=== PATIENT | male | born 1955 | race Caucasian/White ===

== ENCOUNTER 2016-11-19 10:00 | Inpatient (IN) | payer MEDICARE, BC ==
[~2016-11-19] VITALS: Ht 182.9 cm; Wt 140.8 kg
--- NOTE | ~2016-11-19 | OR ---
PATIENT'S NAME: ALFREDO MURRIETA [facility] AGE: 61 Y [address] ROOM: [place] [address] LOCATION: GICU ADMIT DATE: 11/19/2016 OR/Procedure Report DISCHARGE DATE: FAMILY PHYSICIAN: Denny Viera MD ATTENDING PHYSICIAN: OLAMIDE DIEHL SURGEON: Alfredo Allan MD [employer] REPRESENTATIVE: Kelly Munoz RN DATE OF PROCEDURE: 11/19/2016 PREOPERATIVE DIAGNOSES: 1. Right knee effusion. 2. Potential septic arthritis. 3. Potential periprosthetic infection, right knee. POSTOPERATIVE DIAGNOSES: 1. Right knee effusion. 2. Potential septic arthritis. 3. Potential periprosthetic infection, right knee. PROCEDURE PERFORMED: Aspiration of right knee. ANESTHESIA: Local. INDICATION FOR PROCEDURE: The patient presents with an acute right knee effusion. Knee pain and swelling commenced at 2 a.m. this morning. Aspiration is indicated to rule out infection. The patient has a history of a previous 2-stage revision for septic arthritis of this knee. The patient and his have been informed of the risk of iatrogenic infection, and informed consent for this procedure has been granted. DESCRIPTION OF PROCEDURE: With the patient positioned supine, the lateral aspect of the right knee was prepped with DuraPrep 3 separate times. Subcutaneous tissues at the lateral aspect of the suprapatellar pouch were subsequently infiltrated with 5 mL of 1% plain lidocaine using a 25-gauge needle. The skin was re-prepped with DuraPrep, and an 18-gauge needle was advanced through the anesthetized sterilized area into the lateral aspect of the suprapatellar pouch. 60 mL of purulent material was aspirated and sent for cell count, Gram stain, and culture and sensitivities. He tolerated this well, and there were no breaches in sterile technique. ALFREDO ALLAN MD PATIENT'S NAME: ALFREDO MURRIETA [facility] AGE: 61 Y [address] ROOM: [place] [address] LOCATION: GICU ADMIT DATE: 11/19/2016 OR/Procedure Report DISCHARGE DATE: FAMILY PHYSICIAN: Denny Viera MD ATTENDING PHYSICIAN: OLAMIDE DIEHL/gil /[id number] d: 11/19/16 1340 t: 11/29/16 0751, OPERATIVE SUMMARY
--- NOTE | ~2016-11-19 | OR ---
PATIENT'S NAME: [facility] AGE: 61 Y [address] ROOM: [place] [address] LOCATION: [facility] ADMIT DATE: 11/19/2016 OR/Procedure Report DISCHARGE DATE: FAMILY PHYSICIAN: Denny Viera MD ATTENDING PHYSICIAN: OLAMIDE DIEHL SURGEON: Alfredo Servin MD INST[employer]ING: ARIN Mark [employer] Todd Bernal CST/SAFETY ANALYST. DATE OF PROCEDURE: 11/19/2016 PREOPERATIVE DIAGNOSES: 1. Right knee septic arthritis. 2. Periprosthetic infection, right knee. 3. 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 POSTOPERATIVE DIAGNOSES: 1. Right knee septic arthritis. 2. Periprosthetic infection, right knee. 3. 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 PROCEDURE PERFORMED: 1. Irrigation and debridement, right knee with extensive synovectomy and exchange of tibial polyethylene insert and femoral hinge pin. 2. Placement of antibiotic impregnated beads. ANESTHESIA: General. ESTIMATED BLOOD LOSS: Less than 50 mL. DRAINS: None. SPECIMEN: None. COMPLICATIONS: None. IMPLANTS: 1. DePuy LPS 23 mm size medium tibial polyethylene insert. 2. DePuy S-ROM NOILES replacements, femoral hinge pin. COMPLICATIONS: None. INDICATION FOR PROCEDURE: Mr. Barrera awoke on the morning of this procedure at 2:00 a.m. with significant right knee pain. His knee had previously been PATIENT'S NAME: [facility] AGE: 61 Y [address] ROOM: [place] [address] LOCATION: [facility] ADMIT DATE: 11/19/2016 OR/Procedure Report DISCHARGE DATE: FAMILY PHYSICIAN: Denny Viera MD ATTENDING PHYSICIAN: OLAMIDE DIEHL functioning very well. His previous orthopedic history is significant for having undergone a 2-stage exchange right knee arthroplasty secondary to a periprosthetic infection with Staphylococcus aureus. His knee was reimplanted in April of this year and it has been functioning well with no signs or symptoms of persistent or recurrent infection, until 2:00 a.m. on the morning of this procedure. Aspiration of the patient's right knee demonstrated over 100,000 white blood cells with a preponderance of neutrophils. He is taken to the operating room urgently in an effort to salvage his procedure. Presumably, there has been hematogenous dissemination of bacteria from elsewhere in his body (given the fact that his knee asymptomatic when he went to bed on the evening prior to surgery). He has a 3 mm ulcerated lesion at his right heel and multiple cracks in the skin at the sole of both of his feet and, presumably, this could have been a route for bacterial ingress. Risks, benefits, limitations, and alternatives to this procedure have been thoroughly reviewed with the patient and his spouse. I have emphasized the potential for persistent or recurrent infection, deep venous thrombosis, pulmonary embolism, mortality, neurovascular complications, stiffness, wear, loosening, and potential need for further revision. We have discussed the option of proceeding directly with a resection arthroplasty (with an anticipated 2-stage revision and the patient's expressed reluctance to do so, "Unless absolutely necessary." Furthermore, she has expressed a desire for her to be more actively involved in this decision-making process with a more clear sensorium that he presently has, otherwise given the fact that he is demonstrating signs and symptoms of septicemia). Furthermore, it is acknowledged that removal of his revision components could further compromise his residual distal femoral and proximal tibial bone stock (potentially precluding stable reimplantation). Informed consent granted. DESCRIPTION OF PROCEDURE: The patient was positioned supine. Intravenous antibiotics had been administered prior to my consultation. The patient and his had been informed of the potential for a false negative culture. A well-padded pneumatic tourniquet was positioned around the right proximal thigh. The right lower extremity was prepped and draped with vigilant sterile technique. Examination under anesthesia demonstrated neutral alignment. There was a large effusion. There was a well-healed midline scar. There was no erythema. There was no abnormal warmth. Range of motion of the knee is 0- 120 degrees of flexion. There was no varus or valgus laxity. The right lower extremity was elevated for 3 minutes prior to inflation of the tourniquet. The knee was not exsanguinated. The knee was approached through a longitudinal midline incision. A medial parapatellar arthrotomy was performed. There were several 100 mL of purulent fluid within the joint. The patella was not resurfaced. There was a moderate amount of fibrinous exudate. There was a mild amount of proliferative PATIENT'S NAME: ALFREDO BARRERA [facility] AGE: 61 Y [address] ROOM: [facility] [place], [place] [address] LOCATION: [facility] ADMIT DATE: 11/19/2016 OR/Procedure Report DISCHARGE DATE: FAMILY PHYSICIAN: Denny Viera MD ATTENDING PHYSICIAN: OLAMIDE DIEHL synovitis. Overall, there was not a large amount of proliferative soft tissue surrounding the joint (indicating that this was most recently a recent hematogenous dissemination of infection rather than a chronic low-grade infection). Extensive synovectomy was performed. The femoral hinge pin was removed and the tibial polyethylene insert was removed. The entire joint space and prosthetic interfaces were irrigated with 3 L of sterile saline containing bacitracin, prior to irrigation with 1 L of Rashmi Bactisure, prior to irrigation with an additional 3 L of sterile saline containing bacitracin. After the irrigation, a new tibial polyethylene insert was placed and a new femoral hinge pin was deployed and confirmed to be fully seated under direct visualization. Patellar tracking was neutral. The incision was closed with multiple [id number] interrupted and simple interrupted #2 PDS sutures, followed by a running PDS Quill suture. Subcutaneous tissues were re-irrigated and reapproximated with a running 0 Quill suture. The skin was closed with surgical lynsey. The dressing consisted of a Mepilex dressing, followed by a compressive Garfield wrap, followed by a knee immobilizer. MD STEF HAWK/gil /[id number] d: 11/20/16 1013 t: 11/29/16 0757, OPERATIVE SUMMARY
--- NOTE | ~2016-11-19 | ECHO ---
Transthoracic Echocardiography Report (TTE) Demographics Patient Name ALFREDO MURRIETA Date of Study 11/22/2016 Patient Number [id number] Visit Number [id number] Date of 1955 Room Number [id number] Gender Male Number Age 61 year(s) Referring Clotilde Lovell Cover Stitch Machine Operator Lizet Urbina RDCS, RVT, Physician RDMS, ENVIRONMENTAL SAFETY SPECIALIST Physician Interpreting Carlos Adametommy Manager Material Physician Supervising Ordering [facility] Shira Chaparro MD/P Physician Nurse [employer] Solutions Architect Conclusions Summary The estimated left ventricular ejection fraction is 60-65%. Moderate concentric left ventricular hypertrophy. Diastolic assessment reveals Grade II pseudonormal diastolic function . The left ventricle is normal in size . Mildly dilated right ventricle. Normal right ventricular systolic function. The left atrium is moderately dilated by LA volume index measurement. The IVC is not visualized. The right atrium is mildly dilated. Trivial mitral regurgitation by color Doppler. Mild calcification of the mitral valve. The aortic valve is mildly sclerotic. Small echodensity noted on right coronary cusp of aortic valve likely due to degenerative changes and calcification. Consider CHIN if clinically indicated. No obvious vegetation seen. Clinical correlation is recommended. Procedure Type of Study TTE procedure:2D Echocardiogram, M-Mode, Doppler , Color Doppler. Procedure Date Date: 11/22/2016 Start: 11:28 AM Study Location: Inpatient Portable Technical Quality: Adequate visualization Additional Indications:Endocarditis Patient Status: STAT HR: 70 bpm BP: 188/77 mmHg M-Mode/2D Measurements LV Diastolic Dimension: 5.19 cm LV Systolic Dimension: 3.2 cm LV Septum Diastolic: 1.4 cm LV PW Diastolic: 1.33 cm AO Root Dimension: 3.1 cm Cardiac Output: 6.05 l/min AV Cusp Separation: 2 cm RV Diastolic Dimension: 3.88 cm LA volume: 70 ml LVOT: 2.3 cm RV Base: 84 cm LVOT VTI: 20.8 cm RV Mid: 4.2 cm LV Stroke volume: 86.38 ml TAPSE: 2.2 cm TDI-S': 13 cm/s Doppler Measurements AV Peak Velocity: 1.31 m/s MV Peak E-Wave: 1.19 m/s AV Peak Gradient: 6.86 mmHg MV Peak A-Wave: 0.87 m/s AV Mean Gradient: 3 mmHg MV E/A Ratio: 1.37 LVOT Peak Velocity: 0.82 m/s MV P1/2t: 63 msec TR Gradient:18.15 mmHg PV Peak Velocity: 1.11 m/s PV Peak Gradient: 4.93 mmHg E' Septal Velocity: 0.04 m/s A' Septal Velocity: 0.12 m/s E' Lateral Velocity: 0.07 m/s A' Lateral Velocity: 0.15 m/s Findings Left Ventricle Mild concentric left ventricular hypertrophy. Diastolic assessment reveals Grade II pseudonormal diastolic function . The left ventricle is normal in size . Right Ventricle Mild to moderately dilated right ventricle. Normal right ventricular systolic function. Left Atrium The left atrium is moderately dilated by LA volume index measurement. Right Atrium The IVC is not visualized. The right atrium is mildly dilated. Mitral Valve Trivial mitral regurgitation by color Doppler. Mild calcification of the mitral valve. Aortic Valve The aortic valve is mildly sclerotic. Small echodensity noted on right coronary cusp of aortic valve likely due to degenerative changes and calcification Tricuspid Valve Trivial tricuspid regurgitation by color Doppler. Pulmonic Valve Normal pulmonic valve structure and function. Pericardial Effusion No evidence of pericardial effusion. Miscellaneous The ascending aorta appears mildly dilated. The maximum diameter measures 3.7 cm. Pleural Effusion No evidence of pleural effusion. Contractility Score LV regional wall motion:(0-Non visualized 1-Normal 2-Hypokinesis 3-Akinesis 4-Dyskinesis 5-Aneurysm) Signature dtt: RUSTY IQBAL dtd: 11/22/16 1128 Physician Self Edit
--- NOTE | ~2016-11-19 | DS ---
PATIENT'S NAME: ALFREDO MURRIETA [facility] AGE: 61 Y [address] ROOM: [id number] [place], [place] [address] LOCATION: GICU ADMIT DATE: 11/19/2016 Discharge Summary DISCHARGE DATE: 11/23/2016 FAMILY PHYSICIAN: Denny Viera MD ATTENDING PHYSICIAN: Leona Siddiqi PRINCIPAL/DISCHARGE DIAGNOSES: 1. Right septic arthritis of the knee. 2. Staphylococcus bacteremia. 3. Sepsis secondary to knee arthritis with sepsis. 4. Acute kidney injury. 5. Type 2 diabetes. 6. Diastolic congestive heart failure. HOSPITAL COURSE: Please refer to the admission history and physical for a detailed history on initial presentation. This is a 61-year-old male with type 2 diabetes, who has had right knee revision done earlier this year, who presented with worsening pain in the right knee and was noted to have an infection in the knee. The patient was immediately seen by Orthopedics and was taken to the operating room for some I and D and cleanup of the knee. Cultures from the knee joint did grow MSSA. The patient was treated with broad-spectrum antibiotics initially, and after sensitivities were back, he has been on Ancef. The patient is to continue long-term IV antibiotic treatment with Ancef going forward, and he is going to have a close followup with regard to managing his prosthetic knee joint going forward. The patient is to closely follow up with Dr. Servin. The patient continues to spike persistent fevers and managing the source of the infection, which is the right knee that continues to be a challenge, and at this point, we are trying to do everything possible to save that knee joint. I had a long discussion with Dr. Servin, the patient and patient's about the challenge of controlling the source of infection. But at this point, we will continue aggressive treatment with long course of antibiotic treatments and closely monitor clinically. The patient today tells me that he feels fine and is ready to be discharged to swing bed where he can also be closely monitored. The patient is advised to return if he shows any signs of deterioration. The patient was also noted to have an outside laboratory report showing that he has staphylococcus bacteremia in one of two bottles. I did go ahead and get an echocardiogram to check for endocarditis, and there are no signs of vegetation. At this point, we will continue treatment with the same antibiotics that we are using for the septic joint and continue to monitor clinically. PHYSICAL EXAMINATION: GENERAL APPEARANCE: The patient is awake, alert, and oriented x3, in no acute distress. HEART: S1 and S2. Regular rate and rhythm. ABDOMEN: Soft, nontender, and nondistended. PATIENT'S NAME: ALFREDO MURRIETA [facility] AGE: 61 Y [address] ROOM: [place] [address] LOCATION: [facility] ADMIT DATE: 11/19/2016 Discharge Summary DISCHARGE DATE: 11/23/2016 FAMILY PHYSICIAN: Denny Viera MD ATTENDING PHYSICIAN: Leona Siddiqi EXTREMITIES: Without edema. NEUROLOGIC: Grossly nonfocal. DISPOSITION: To swing bed and will continue antibiotics as prescribed with Ancef for an extended period of time and will follow up with Dr. Servin and ID closely. Greater than 30 minutes were spent in discharge planning and facilitating. MD TRISTIAN EDMOND/modl /[id number] d: 11/23/16 1244 t: 12/01/161999, DISCHARGE SUMMARY
--- NOTE | ~2016-11-19 | CON ---
PATIENT'S NAME: ALFREDO BARRERA [facility] AGE: 61 Y [address] ROOM: [id number] [place], [place] [address] LOCATION: GICU ADMIT DATE: 11/19/2016 Consultation DISCHARGE DATE: FAMILY PHYSICIAN: Denny Viera MD ATTENDING PHYSICIAN: OLAMIDE DIEHL REFERRING PHYSICIAN: ALFREDO ALLAN MD HISTORY OF PRESENT ILLNESS: Mr. Barrera is a 61-year-old male, whose past orthopedic history is significant for having undergone a 2-stage revision right total knee arthroplasty for a periprosthetic infection last year. We reimplanted his right total knee arthroplasty on May 06, 2016, and he has been doing very well (subjectively and objectively) with no signs of recurrent difficulties with his knee until 2:00 a.m. this morning. The patient's states that he was "doing great at 8:00 p.m. last night when he went to bed." The patient awoke at approximately 2:00 a.m. this morning to go to the bathroom. He noted significant right knee pain and swelling. He did not wake his up at that time. His noted that he was confused and lethargic this morning. This made her concerned that he might have suffered a recurrent cerebrovascular accident. His past medical history is significant for having sustained a cerebrovascular accident in July 2013. He has required a cane for balance since then. The patient's took him to the emergency room this morning in his home town. The caregiver who evaluated him there was concerned regarding septicemia due to the fact that he was febrile and tachycardic. The right knee was the only site of suspected infection. Arrangements were made to transfer him here promptly. Intravenous antibiotics were reportedly administered prior to contacting us. The patient has been hemodynamically stable. The patient states, "I could do anything I wanted with it until this morning" (referring to his right knee). The patient's states that her has been more active than usual over the past few days due to the fact that he has been caring for her after she has returned home from recent hospitalization. ACTIVE MEDICAL PROBLEMS: Diabetes mellitus, history of renal insufficiency (acute renal insufficiency associated with his previous periprosthetic infection and antibiotic treatment thereof). ACTIVE MEDICAL PROBLEMS: Hypertension, history of renal insufficiency, diabetes mellitus, osteoarthritis. PRESENT MEDICATIONS: 1. Pravastatin. 2. Remeron. 3. Metformin. PATIENT'S NAME: ALFREDO BARRERA [facility] AGE: 61 Y [address] ROOM: [id number] [place], [place] [address] LOCATION: GICU ADMIT DATE: 11/19/2016 Consultation DISCHARGE DATE: FAMILY PHYSICIAN: Denny Viera MD ATTENDING PHYSICIAN: OLAMIDE DIEHL 4. Januvia. 5. Gabapentin. 6. Plavix. 7. Amlodipine. PAST SURGICAL HISTORY: Appendectomy, unspecified lumbar spine surgery, unspecified colon surgery, right total knee arthroplasty, removal of right total knee arthroplasty, reimplantation of right total knee arthroplasty. PHYSICAL EXAMINATION: GENERAL: The patient is alert, responsive, somewhat somnolent and lethargic, oriented x3, but he recalls details related to his previous knee treatment, and the circumstances of the last 24 hours, no acute distress. EXTREMITIES: Right knee demonstrates a large effusion. There is a well-healed longitudinal midline scar at the right knee. There is moderate generalized tenderness at the right knee. There is mild increased warmth at the right knee. There is no flexion contracture at the right knee. There is neutral alignment of the right knee. Flexion of the right knee is from full extension to 120 degrees of flexion. He is able to actively dorsiflex and plantar flex the right ankle with 5/5 motor strength. 2+ dorsalis pedis pulse on the right. RADIOGRAPHS: I reviewed outside radiographs from this morning. These demonstrate a well- fixed, well-aligned, rotating hinge S-ROM NOYLES DePuy implant with cemented tibial and femoral stems and cemented tibial and femoral metaphyseal sleeves. There are no radiolucencies. The patella is not resurfaced. The residual te-moak patella is thin. Patella height is normal. IMPRESSION: 1. Septicemia with periprosthetic right knee infection. 2. Diabetes mellitus. 3. History of renal insufficiency. 4. Hypertension. 5. History of previous periprosthetic infection. Based upon the history that the patient provides (acute symptoms starting at 2:00 a.m. this morning), this may very well be a hematogenous dissemination of infection in the knee. It would be highly unusual for there to have been a chronic persistent (and/or recurrent) periprosthetic infection in the absence of any symptoms until this morning at 2:00 p.m. RECOMMENDATIONS: I recommended an aspiration. This was highly concerning for recurrent septic arthritis. Please refer to the separately dictated procedure note. PATIENT'S NAME: ALFREDO BARRERA [facility] AGE: 61 Y [address] ROOM: [place] [address] LOCATION: [facility] ADMIT DATE: 11/19/2016 Consultation DISCHARGE DATE: FAMILY PHYSICIAN: Denny Viera MD ATTENDING PHYSICIAN: OLAMIDE DIEHL I have recommended prompt irrigation and debridement. I have informed the patient and his that the infection poses a risk to his life presently and requires urgent irrigation and debridement. In terms of the fate of the prosthesis, I have informed them that the best chance of ridding himself of infection would be to undergo a repeat 2-stage exchange arthroplasty. The patient's is highly reluctant to consider this at the present time and would like to involve him in the decision making process. Therefore, she would prefer to wait until he is more alert to make a definitive decision about whether or not to remove his prosthesis. I have made arrangements for compatible parts and instrumentation to be brought out from [place] (immediately upon hearing of the patient situation and prior to his transport here this morning). We will proceed to the operating room for a bearing exchange, Bactisure irrigation, synovectomy, extensive irrigation and debridement, and bearing exchange this evening. He will be started on empiric intravenous antibiotics. After the patient is more alert and stable (after we identify the offending organism), we will make a decision regarding whether or not to proceed with a 2-stage exchange arthroplasty. I have informed the patient's that there is no guarantee that irrigation and debridement alone (without prosthetic removal) will eradicate the infection. She understands and accepts this. I have also offered them the option of a referral to [facility] for a second opinion. All of her questions and concerns were answered to her satisfaction. She has given consent for irrigation and debridement, but not for a resection arthroplasty presently. MD STEF HAWK/gil /[id number] d: 11/19/16 2309 t: 11/29/16 0755, CONSULTATION REPORT
--- NOTE | ~2016-11-19 | HP ---
PATIENT'S NAME: ALFREDO MURRIETA [facility] AGE: 61 Y [address] ROOM: [place] [address] LOCATION: GICU ADMIT DATE: 11/19/2016 History & Physical DISCHARGE DATE: FAMILY PHYSICIAN: Denny Viera MD ATTENDING PHYSICIAN: OLAMIDE DIEHL DATE OF SERVICE: CHIEF COMPLAINT: Right knee pain, fever, and altered mental status. HISTORY OF PRESENT ILLNESS: A 61-year-old gentleman with a past medical history of hypertension and type 2 diabetes mellitus who had a right knee revision done earlier this year, started having pain in the right knee since last night which is sore in character, radiates to the lower leg as well, relieved with rest, increased with movement, 8/10, relieved with pain medication, associated with fever, chills, and generalized weakness. That prompted a visit to the emergency department where he was found to be in sepsis and was transferred here for further medical care. On my encounter, he is still drowsy, but answering questions appropriately. He is still complaining of right knee swelling and pain on movement here. He still describes it as sore, increased with movement, elevated with rest. On further inquiry, he said he does not have any headache, any trouble with the eyes, any shortness of breath, any palpitation, or any cough or sputum production. No abdominal pain, constipation, or diarrhea. He did endorse having cold and shakes. REVIEW OF SYSTEMS: All other systems reviewed and were negative except what is mentioned in the HPI. PAST MEDICAL HISTORY: Hypertension; LUKAS, requiring dialysis in the past; type 2 diabetes mellitus; stroke; obesity; and nocturnal hypoxia. MEDICATIONS: Being reconciled right now. FAMILY HISTORY: Hypertension, coronary artery disease, and congestive heart failure as well as stroke in father. ALLERGIES: THE PATIENT IS ALLERGIC TO SERTRALINE. PATIENT'S NAME: GLENNY RUMA [facility] AGE: 61 Y [address] ROOM: [place] [address] LOCATION: GICU ADMIT DATE: 11/19/2016 History & Physical DISCHARGE DATE: FAMILY PHYSICIAN: Denny Viera MD ATTENDING PHYSICIAN: OLAMIDE DIEHL SOCIAL HISTORY: Former smoker. No alcohol or ongoing toxic habits. PHYSICAL EXAMINATION: VITAL SIGNS: Temperature 100, pulse rate 100, saturating 95% on room air, blood pressure 150/87, and respiratory rate of 20. GENERAL: In mild acute distress due to cold. Alert and oriented x3, drowsy though. HEENT: Head: Atraumatic, normocephalic. Eyes: Nonicteric. No pallor. Oropharynx: Dry mucous membranes. CARDIOVASCULAR: S1 and S2. No murmurs, gallops, or rubs. Tachycardia. LUNGS: Clear to auscultation bilaterally. ABDOMEN: Soft, nontender, and nondistended. Bowel sounds are present. EXTREMITIES: No clubbing, cyanosis, or edema. MUSCULOSKELETAL: Right knee tenderness, swelling, erythema, as well as fluctuance. LYMPHATIC: No lymphadenopathy or lymphangitis noticed. ENDOCRINE: No thyromegaly or cushingoid features noted. LABORATORY DATA: Lab work from outside facility showed an EKG with sinus tachycardia without any acute ST-T wave changes. Chest x-ray was done which was negative for any acute intrathoracic changes. Right knee showed effusion in the joint. Lab work was remarkable for white count of 15. Potassium of 3.3 and creatinine of 1.2. Troponin one set has been negative. ASSESSMENT: 1. Severe sepsis secondary to septic knee. 2. Right septic arthritis. 3. Acute kidney injury secondary to sepsis. 4. Hypokalemia. 5. Hypertension. 6. History of stroke. 7. Type 2 diabetes mellitus. 8. Depression. 9. Acute kidney injury. 10. Chronic respiratory failure. PLAN: We are going to start him on sepsis protocol. Two sets of blood cultures have already been drawn and will be redrawn again. He will be given 30 mL/kg of fluid as well as broad-spectrum antibiotics including vancomycin and Zosyn. Time of sepsis was identified at 9 a.m. at the outside facility. He has already been given a dose of vancomycin and Zosyn, plus 1 L of fluids has been administered already. We will redraw lactic acid level and procalcitonin PATIENT'S NAME: ALFREDO MURRIETA [facility] AGE: 61 Y [address] ROOM: [place] [address] LOCATION: [facility] ADMIT DATE: 11/19/2016 History & Physical DISCHARGE DATE: FAMILY PHYSICIAN: Denny Viera MD ATTENDING PHYSICIAN: OLAMIDE DIEHL. Source control will be done by Dr. Servin as he deems appropriate. Potassium will be replaced. We will put him on sliding scale insulin for his diabetes now. Monitor creatinine and electrolytes as the fluid resuscitation goes on. The patient will be n.p.o. Further recommendations will be dependent on his progress in the hospital. The patient is full code. MD SHAYY YOUNGER/gil /[id number] D: [id number] T: HISTORY & PHYSICAL
--- NOTE | ~2016-11-19 | CON ---
PATIENT'S NAME: ALFREDO MURRIETA [facility] AGE: 61 Y [address] ROOM: [id number] [place], [place] [address] LOCATION: [facility] ADMIT DATE: 11/19/2016 Consultation DISCHARGE DATE: FAMILY PHYSICIAN: Denny Viera MD ATTENDING PHYSICIAN: OLAMIDE DIEHL DATE OF CONSULTATION: 11/20/2016 REFERRING PHYSICIAN: ALFREDO ALLAN MD REASON FOR CONSULT: Right heel assessment. HISTORY OF PRESENT ILLNESS: This is a 61-year-old male patient was admitted to [facility] with a right septic knee. He has a history of diabetes. He does not know that he has an ulcer to his right heel. His notes that his feet look good. He admits to peripheral neuropathy. He does not wear diabetic foot wear, just diabetic socks. He denies pain to the right heel. He notes sores to his abdomen that have been present on and off for years. He continually picks at the sites. No current treatment noted. He denies further skin issues. He lives with his in [place]. He denies chest pain. He denies shortness of breath. He denies constitutional symptoms. PAST MEDICAL HISTORY: Hypertension, type 2 diabetes mellitus, CVA, obesity, nocturnal hypoxia, & history of renal insufficiency. PAST SURGICAL HISTORY: Back fusion, T and A, right total knee arthroplasty x2, left elbow surgery, & colon resection. FAMILY MEDICAL HISTORY: Father is positive for diabetes, stroke, hypertension, and CAD. Mother had an aortic valve replacement. SOCIAL HISTORY: The patient lives with his in [place]. He is a former smoker but quit in the 90s. He denies alcohol use. He is currently disabled. ALLERGIES: ZOLOFT. CURRENT MEDICATIONS: Please refer to the medication administration record. PATIENT'S NAME: ALFREDO MURRIETA [facility] AGE: 61 Y [address] ROOM: [id number] [place] [id number] LOCATION: [facility] ADMIT DATE: 11/19/2016 Consultation DISCHARGE DATE: FAMILY PHYSICIAN: Denny Viera MD ATTENDING PHYSICIAN: OLAMIDE DIEHL A REVIEW OF SYSTEMS: Pertinent positives addressed in HPI. All others are negative. PHYSICAL EXAMINATION: VITAL SIGNS: Temperature 98.4, pulse 69, respirations 16, blood pressure 121/57, pulse oximetry 96% on room air. Height 6 feet even and weight 141.0 kg. GENERAL: The patient is alert and oriented x3. Conversational. In no acute distress. HEENT: Head is normocephalic and atraumatic. Anicteric sclerae. Oral mucosa intact. CARDIOVASCULAR: Deferred. ABDOMEN: Large, soft. Nontender. Four scattered scabs to right abdomen. No drainage noted. Obvious scarring noted. EXTREMITIES: +2 pedal pulses. Capillary refill intact. SKIN: To the patient's right plantar heel has xerosis with skin peeling, small brown discoloration that measures 0.3 cm width x 0.4 cm length. Nontender to touch. No drainage noted. The site does not appear open at this point. LABORATORY DATA: White blood cell count 11.5, hemoglobin 10.6, hematocrit 30.4, & platelets at 154. ASSESSMENT AND PLAN: Again, this is a 61-year-old male patient was admitted to [facility] with a right septic knee. Wound care consult to evaluate right heel. 1. Right heel xerosis with brown discoloration. No active ulcer noted. The patient is certainly at risk for breakdown. Discussed the importance of offloading. Unfortunately, Podus footdrop boot will not fit over his immobilizer. Priority to moisturize the site. I instructed nursing to apply Aloe [place] moisture barrier cream t.i.d. to the foot, avoiding the toes. We will continue to monitor during hospital stay. Discussed importance of daily foot exam and custom orthotics, since he is a diabetic. 2. Abdominal wounds. These are chronic in nature. All closed and dry with scabs. We will treat with Bactroban 2% ointment t.i.d. x10 days. I instructed the patient to leave sites alone and not pick at them. It is great meet Alfredo. We will continue to follow him during his hospital stay. I would like to thank Dr. Allan for this consult. PATIENT'S NAME: ALFREDO MURRIETA [facility] AGE: 61 Y [address] ROOM: [address] [address] LOCATION: [facility] ADMIT DATE: 11/19/2016 Consultation DISCHARGE DATE: FAMILY PHYSICIAN: Denny Viera MD ATTENDING PHYSICIAN: OLAMIDE DIEHL APRN FOR [employer]O DISLA MD MKS/modl /[id number] d: 11/20/16 1858 t: 11/28/16 0857, CONSULTATION REPORT
[~2016-11-19 10:00] MED LIST: AMARYL2 MG PO; ANCEF, KEFZOL1 GM IV; ASPIRIN EC81 MG PO; ASPIRIN LO-DOSE81 MG PO; BENADRYL25 MG PO; CATAPRES0.1 MG PO; COLACE100 MG PO; COREG25 MG PO; COZAAR100 MG PO; DILAUDID 2MG(HYD2 MG PO; EFFEXOR XR150 MG PO; ELIQUIS2.5 MG PO; FLORASTOR250 MG PO; GLUCOPHAGE500 MG PO; GLUCOTROL10 MG PO; HYDROCHLOROTHIA25 MG PO; IBUPROFEN800 MG PO; JANUVIA50 MG PO; JARDIANCE25 MG PO; LOTENSIN40 MG PO; METFORMIN HCL500 MG PO; MIRALAX17 GM PO; MIRAPEX0.25 MG PO; NEURONTIN600 MG PO; NORVASC10 MG PO; NOVOLOG100 UNIT/M SUB-Q; OXYGEN M-15 NOSE; PERCOCET 10-321 EACH PO; PLAVIX75 MG PO; PRAVACHOL80 MG PO; TYLENOL325 MG PO; VALIUM5 MG PO; XARELTO10 MG PO; [UNRECOGNIZED DRUG - OTHER] SUB-Q
[2016-11-19] MEDS ORDERED: K-TAB 10MEQ10 MEQ PO (11:57)
[2016-11-19] MEDS ORDERED: PERCOCET 10-321 EACH PO (11:58)
[2016-11-19] MEDS ORDERED: HYDRODIURIL25 MG PO (11:58)
[2016-11-19] MEDS ORDERED: AMARYL2 MG PO (11:59)
[2016-11-19 12:01] LABS: BICARBONATE 29.9 mmol/L (18.0-23.0); PCO2 42 mmHg (35-45); PO2 60 mmHg (80-90)
[2016-11-19 12:38] LABS: BICARBONATE 31.6 mmol/L (18.0-23.0)
[2016-11-19 12:39] LABS: PCO2 56 mmHg (35-45)
[2016-11-19 12:40] LABS: PO2 36 mmHg (80-90)
[2016-11-19 12:49] LABS: INR - (THERAPEUTIC) 1.02 (0.92-1.07); PROTIME 10.7 SECONDS (9.8-11.4)
[2016-11-19 12:58] LABS: ALBUMIN 3.5 gm/dL (3.5-5.0); CALCIUM 8.5 mg/dL (8.5-10.5); CREATININE 1.4 mg/dL (0.6-1.3); TOTAL PROTEIN 7.2 g/dL (6.0-8.4)
[2016-11-19 13:21] LABS: BILIRUBIN URINE NEGATIVE (NEGATIVE); BLOOD URINE NEGATIVE /UL (NEGATIVE); COLOR URINE YELLOW (YELLOW); GLUCOSE URINE 100 mg/dL (NEGATIVE); KETONE URINE NEGATIVE (NEGATIVE); LEUKOCYTES URINE NEGATIVE /UL (NEGATIVE); NITRITE URINE NEGATIVE (NEGATIVE); PROTEIN URINE 15 mg/dL (NEGATIVE); SPEC GRAVITY URINE 1.015 (1.003-1.035); TURBIDITY URINE CLEAR (CLEAR); UROBILINOGEN URINE NORMAL (NORMAL)
[2016-11-19 13:44] LABS: EPITHELIAL URINE 0-2 #/HPF (NEGATIVE); RBC URINE NEGATIVE #/HPF (NEGATIVE); WBC URINE 0-2 #/HPF (NEGATIVE)
[2016-11-19 13:45] LABS: BACTERIA URINE NEGATIVE (NEGATIVE)
[2016-11-19 13:46] LABS: AMORPHOUS URINE 1+ (NEGATIVE)
[2016-11-19 16:58] LABS: BICARBONATE 27.1 mmol/L (18.0-23.0); PCO2 34 mmHg (35-45); PO2 103 mmHg (80-90)
[2016-11-20 10:18] LABS: BASOPHIL % 0.3 %; EOSINOPHIL % 0.3 %; HEMATOCRIT 30.4 % (37.0-53.0); HEMOGLOBIN 10.6 g/dL (11.0-16.0); IMMATURE GRANULOCYTE # 0.1 K/uL (0.0-0.3); IMMATURE GRANULOCYTE % 0.7 %; LYMPHOCYTE # 0.7 K/uL (0.8-4.0); LYMPHOCYTE % 5.7 %; MCH 30.8 pg (27.0-34.0); MCHC 34.9 gm/dL (32.0-36.5); MCV 88.4 fl (83.0-98.0); MONOCYTE # 0.7 K/uL (0.0-1.0); MONOCYTE % 5.7 %; MPV 10.8 fl (9.4-12.4); NEUTROPHIL # (ANC) 10.1 K/uL (1.4-9.0); NEUTROPHIL % 87.3 %; NRBC % 0 /100WBC (0-0.00); PLATELET COUNT 154 K/uL (150-450); RBC 3.44 M/uL (3.50-5.50); RDW-CV 13.5 % (11.9-14.6); WBC 11.5 K/uL (4.0-11.0)
[2016-11-20 13:42] LABS: ALBUMIN 2.9 gm/dL (3.5-5.0); ANION GAP 9.1 (10.0-19.0); CALCIUM 8.9 mg/dL (8.5-10.5); CREATININE 1.2 mg/dL (0.6-1.3); POTASSIUM 3.1 mMol/L (3.7-5.1); TOTAL PROTEIN 6.6 g/dL (6.0-8.4)
[2016-11-20 13:46] LABS: TOTAL BILIRUBIN 1.3 mg/dL (0.0-1.5)
[2016-11-21 05:32] LABS: BASOPHIL % 0.3 %; EOSINOPHIL # 0.1 K/uL (0.0-0.5); EOSINOPHIL % 0.7 %; HEMATOCRIT 29.3 % (37.0-53.0); HEMOGLOBIN 10.3 g/dL (11.0-16.0); IMMATURE GRANULOCYTE # 0.1 K/uL (0.0-0.3); IMMATURE GRANULOCYTE % 0.7 %; LYMPHOCYTE % 8.9 %; MCH 30.5 pg (27.0-34.0); MCHC 35.2 gm/dL (32.0-36.5); MCV 86.7 fl (83.0-98.0); MONOCYTE # 0.8 K/uL (0.0-1.0); MONOCYTE % 7.6 %; MPV 10.6 fl (9.4-12.4); NEUTROPHIL # (ANC) 8.9 K/uL (1.4-9.0); NEUTROPHIL % 81.8 %; NRBC % 0 /100WBC (0-0.00); PLATELET COUNT 161 K/uL (150-450); RBC 3.38 M/uL (3.50-5.50); RDW-CV 13.2 % (11.9-14.6); WBC 10.9 K/uL (4.0-11.0)
[2016-11-21 05:48] LABS: ANION GAP 10.3 (10.0-19.0); BLOOD UREA NITROGEN 20 mg/dL (6-24); CALCIUM 9.9 mg/dL (8.5-10.5); CHLORIDE 104 mMol/L (96-110); CO2 29 mMol/L (22-32); CREATININE 0.8 mg/dL (0.6-1.3); POTASSIUM 3.3 mMol/L (3.7-5.1); SODIUM 140 mMol/L (135-145)
[2016-11-22 05:38] LABS: BLOOD UREA NITROGEN 15 mg/dL (6-24); CALCIUM 10.9 mg/dL (8.5-10.5); CHLORIDE 100 mMol/L (96-110); CO2 30 mMol/L (22-32); CREATININE 0.7 mg/dL (0.6-1.3); SODIUM 138 mMol/L (135-145)
[2016-11-28] MEDS ORDERED: HYDRODIURIL12.5 MG (14:56)
[2016-11-28] MEDS ORDERED: TRIPLE ANTIBIO1 EACH (14:56)
[2016-11-28] MEDS ORDERED: DESYREL50 MG (14:57)
[2016-11-28] MEDS ORDERED: LOVENOX 3030 MG/0.3 (14:57)
== END 2016-11-23 12:45 | disposition swing bed (61) | DRG 485 ==
LOC: GICU 11:09
PROVIDERS: Orthopaedic Surgery; Physician Assistant; ADMIT Internal Medicine
PROC: 0SPC09Z Removal of Liner from Right Knee Joint, Open Approach (ICD-10-PCS; principal; 2016-11-19)
PROC: 0SBC0ZZ Excision of Right Knee Joint, Open Approach (ICD-10-PCS; principal; 2016-11-19)
PROC: 0JDN0ZZ Extraction of Right Lower Leg Subcutaneous Tissue and Fascia, Open Approach (ICD-10-PCS; principal; 2016-11-19)
PROC: 0SUV09Z Supplement Right Knee Joint, Tibial Surface with Liner, Open Approach (ICD-10-PCS; principal; 2016-11-19)
PROC: 3E0U029 Introduction of Other Anti-infective into Joints, Open Approach (ICD-10-PCS; principal; 2016-11-19)
PROC: 0QW Lower Bones, Revision (ICD-10-PCS; principal; 2016-11-19)
PROC: 0S9C3ZZ Drainage of Right Knee Joint, Percutaneous Approach (ICD-10-PCS; 2016-11-19)
PROC: 02HV33Z Insertion of Infusion Device into Superior Vena Cava, Percutaneous Approach (ICD-10-PCS; 2016-11-21)
DX: T84.53XA Infection and inflammatory reaction due to internal right knee prosthesis, initial encounter (principal); A41.9 Sepsis, unspecified organism; R65.20 Severe sepsis without septic shock; N17.9 Acute kidney failure, unspecified; M00.061 Staphylococcal arthritis, right knee; J96.10 Chronic respiratory failure, unspecified whether with hypoxia or hypercapnia; I13.0 Hypertensive heart and chronic kidney disease with heart failure and stage 1 through stage 4 chronic kidney disease, or unspecified chronic kidney disease; I50.30 Unspecified diastolic (congestive) heart failure; Z68.41 Body mass index [BMI] 40.0-44.9, adult; E08.22 Diabetes mellitus due to underlying condition with diabetic chronic kidney disease; N18.9 Chronic kidney disease, unspecified; Z79.84 Long term (current) use of oral hypoglycemic drugs; E87.6 Hypokalemia; E66.01 Morbid (severe) obesity due to excess calories; B95.61 Methicillin susceptible Staphylococcus aureus infection as the cause of diseases classified elsewhere; G47.36 Sleep related hypoventilation in conditions classified elsewhere; Z86.73 Personal history of transient ischemic attack (TIA), and cerebral infarction without residual deficits; Z96.651 Presence of right artificial knee joint; Z79.82 Long term (current) use of aspirin; Z88.8 Allergy status to other drugs, medicaments and biological substances; L85.3 Xerosis cutis; Z98.1 Arthrodesis status; M19.90 Unspecified osteoarthritis, unspecified site; Z79.02 Long term (current) use of antithrombotics/antiplatelets
CPT/HCPCS: C1751; C1776; J0131; J0690; J0696; J0878; J1650; J2270; J2543; J2795; J3370; J3480; J7030; J7040; J7050; J7120